=== PATIENT | male | born 1955 ===

== ENCOUNTER → 2018-05-01 | Outpatient (REF) | payer OTHER ==
[~2018-05-01] MED LIST: ATOR40TA24 PO; CHLOR25 FT; CHOL10005 PO; LISI-374 PO; SIL50 FT
[2018-05-01 11:12] LABS: PLATELET COUNT, AUTOMATED 250 K/uL (150-450)
== END ==
PROVIDERS: ATTEND Family Medicine
DX: R07.9 Chest pain, unspecified (principal)
CPT/HCPCS: 82040; 82247; 82310; 82374; 82435; 82565; 82947; 84075; 84132; 84155; 84295; 84450; 84460; 84484; 84520; 85025; 85379; 86140